=== PATIENT | female | born 1940 | race Caucasian/White ===

== ENCOUNTER → 2016-08-02 | Day surgery (SDC) | payer OTHER ==
[~2016-08-02] VITALS: Ht 167.6 cm; Wt 69.9 kg
[~2016-08-02] MED LIST: ACID REDUCER20 MG PO; ALPRAZOLAM 0.0.25 MG PO; ASPIRIN81 M2 PO; CALCIUM 600 +1 EAC1 PO; CENTRUM SILVER1 EAC4 PO; CIPROFLOXACIN500 M1 PO; KEFLEX500 MG PO; LIPITOR20 MG PO; PYRIDIUM200 M1 PO; VITAMIN B-12500 MC4 PO; VITAMIN D-32000 UNIT PO
--- NOTE | ~2016-08-02 | O ---
[facility] [place] [address] OPERATIVE REPORT Name: NEYMAR DELACRUZ Room #: REG [facility] M..#: [id number] Admission: 08/02/16 Attend Phys: Elias Reeves MD Discharge: Date of : 38 Report #: [id number] THIS REPORT FOR: //name// CC: Jet Douglas MD DATE OF SERVICE: 08/02/2016 SURGEON: Elias Reeves MD RANCH RIDER: None. PREOPERATIVE DIAGNOSIS: Bilateral upper lid dermatochalasia with superior visual field defect. POSTOPERATIVE DIAGNOSIS: Bilateral upper lid dermatochalasia with superior visual field defect. OPERATION PERFORMED: Bilateral upper lid functional blepharoplasty. ANESTHESIA: Local with IV sedation. COMPLICATIONS: None. INDICATIONS FOR SURGERY: This patient has acquired upper lid dermatochalasia with superior visual field loss OU because of excessive upper lid tissues to include skin and fat. Visual field testing was done and demonstrated loss of superior field in excess of 30%. The superior visual field loss improved with retesting done during eyelid elevation. The current procedures are undertaken in order to improve the patient's visual function. Informed consent was obtained to include but not limited to the loss of vision, bleeding, infection, scarring, failure to improve the problem and need for further surgery. DESCRIPTION OF OPERATION: The patient was taken to the operating room, where 2% Xylocaine with epinephrine mixed with equal parts of 0.75% Marcaine with Wydase was administered transcutaneously to each upper lid. The patient was then prepped and draped in the usual sterile fashion and a skin-marking pen was then utilized to outline an upper lid crease that was symmetrical on each side. Graefe forceps were then used to quantitate the redundant upper lid skin and it was similarly outlined. The incisions were then made with Aden scissors and a skin-muscle flap removed from each side with high-temp cautery. Hemostasis was achieved with the monopolar cautery as it was throughout the case. The [address] [address] OPERATIVE REPORT Name: NEYMAR DELACRUZ Room #: REG [facility] M.R.#: [id number] Admission: 08/02/16 Attend Phys: Elias Reeves MD Discharge: Date of : 38 Report #: [id number] orbital septum was then identified and the central and medial fat pads were inspected. The redundant soft tissue was then sculpted with the monopolar cautery. The upper lid crease was then reformed with tightening of the pretarsal orbicularis muscle. The upper lid crease was then further reformed with multiple interrupted 6-0 chromic sutures. The skin was then closed with a running 6-0 plain gut suture. The wound was then cleaned and dressed with ophthalmic antibiotic ointment and a nonstick dressing. The patient was transported to the recovery area, where cold compresses were applied, having tolerated the procedure well with no anesthetic or operative complications being noted. <ELECTRONICALLY SIGNED> By: Elias Reeves MD 08/09/16 0614 [id number] Elias Reeves MD /nt
[2016-08-02 13:10] VITALS: BP 158/77
== END | disposition home or self-care (01) ==
LOC: OR 05:13
DX: H02.831 Dermatochalasis of right upper eyelid (principal); H02.834 Dermatochalasis of left upper eyelid; H53.462 Homonymous bilateral field defects, left side; H53.461 Homonymous bilateral field defects, right side; E78.00 Pure hypercholesterolemia, unspecified; K21.9 Gastro-esophageal reflux disease without esophagitis
CPT/HCPCS: 50010; 50101; 50386; 50398; 51606; 51636; 56531; 62110; 62850; 70005